=== PATIENT | male | born 1970 | race Caucasian/White ===

== ENCOUNTER 2020-03-18 22:22 | Emergency (ER) | payer OTHER ==
[~2020-03-18] VITALS: Ht 170.2 cm; Wt 108.9 kg
[2020-03-18 22:29] VITALS: Ht 170.2 cm; Wt 108.9 kg
[2020-03-19 01:06] VITALS: BP 146/93
== END 2020-03-19 01:06 | disposition home or self-care (01) ==
LOC: ED 22:22
DX: F41.9 Anxiety disorder, unspecified (principal)